=== PATIENT | male | born 1960 | race Caucasian/White ===

== ENCOUNTER 2016-08-02 20:27 | Emergency (ER) | payer SELFPAY ==
[~2016-08-02] VITALS: Ht 177.8 cm; Wt 75.0 kg
[~2016-08-02 20:27] MED LIST: CHLO10CA2 PO; DARU1TAB2 PO; DOLU1TAB PO; INTE200T PO; LACTCAP8 PO; LEVE250 PO; LISI-515 PO; THIA100T PO
[2016-08-02 20:38] VITALS: BP 137/90; PULSE 82; RESP 20; TEMP 99.1; O2SAT 99
[2016-08-02] MEDS ORDERED: SODIUM CHLOR 0.9% 1000 ML INJ 1,000 ML IV SCH (20:45)
--- NOTE | 2016-08-02 21:03 | PD ---
HPI Chief Complaint: Altered Mental Status Time Seen by Provider: 20:59 Travel History International Travel<30 days: No Contact w/Intl Traveler<30days: No Traveled to known affect area: No History of Present Illness HPI 56-year-old male that presents to the ED for evaluation of altered mental status. Patient cannot really provide any significant history. Most of the information provided was given to me by ED nurse who got the report from the ambulance. Patient apparently was found playing on a street by ambulance who brought him here for evaluation. Patient has been altered and doesn't really provide any information. He does appear to be somewhat agitated and had to be restrained. He doesn't really provide me any information. Per report apparently patient has been drinking alcohol today impulsively took some sleeping pills. Patient has been here before for alcohol abuse in the past. He does appear to also have a history of HIV and questionable whether he's had some complaints with it as again we cannot get any information from him at this time. Patient is very altered so history is limited. PFSH Past Medical History Autoimmune Disease: Yes (HIV) Anxiety: Yes Depression: Yes Cancer: No Cardiovascular Problems: Yes (htn on meds) High Cholesterol: Yes Diminished Hearing: No Endocrine: No Gastrointestinal Disorders: Yes Genitourinary: No Headaches: Yes Hypertension: Yes Immune Disorder: Yes (HIV) Implanted Vascular Access Dvce: No Musculoskeletal: No Neurologic: Yes (VIRAL MENINGITIS) Psychiatric: Yes Reproductive: Yes Respiratory: Yes Immunizations Current: Yes Seizures: Yes (10yrs ago seizure) Shingles: Yes ?: Not Past Surgical History Abdominal Surgery: Yes Appendectomy: Yes Cardiac Surgery: No Ear Surgery: No Endocrine Surgery: No Eye Surgery: No Genitourinary Surgery: No Neurologic Surgery: Yes ( lumbar puncture) Oral Surgery: Yes (TOSILLECTOMY) Thoracic Surgery: No Tonsillectomy: Yes Other Surgery: Yes Social History Alcohol Use: Yes ("OFTEN, MOST DAYS" ) Tobacco Use: No Substance Use: No Allergies-Medications (Allergen,Severity, Reaction): Coded Allergies: No Known Allergies (Unverified , 05/14/16) Reported Meds & Prescriptions Reported Meds & Active Scripts Active Chlordiazepoxide (Chlordiazepoxide HCl) 10 Mg Cap 10 Mg PO Q8HR PRN Reported Probiotic (Lactobacillus Acidophilus) 1 Cap Cap 1 Cap PO DAILY Thiamine (Thiamine HCl) 100 Mg Tab 250 Mg PO DAILY Lisinopril 20 Mg Tab 20 Mg PO DAILY Keppra (Levetiracetam) 250 Mg Tab 250 Mg PO BID Intelence (Etravirine) 200 Mg Tab 200 Mg PO BID Tivicay (Dolutegravir Sodium) 50 Mg Tab 50 Mg PO BID Prezcobix (Darunavir-Cobicistat) 800-150 Mg Tab 1 Tab PO DAILY Review of Systems ROS Limitations: Intoxication, Altered Mental Status Except as stated in HPI: all other systems reviewed are Neg Physical Exam Exam Limitations: Intoxication, Altered Mental Status Narrative GENERAL: SKIN: Warm and dry. HEAD: Atraumatic. Normocephalic. EYES: Pupils equal and round dilated 6 mm reactive to light and accommodation. No scleral icterus. No injection or drainage. ENT: No nasal bleeding or discharge. Mucous membranes pink and moist. Tongue is midline. No uvula deviation. NECK: Trachea midline. No JVD. CARDIOVASCULAR: Regular rate and rhythm. No murmurs, S3, S4. RESPIRATORY: No accessory muscle use. Clear to auscultation. Breath sounds equal bilaterally. GASTROINTESTINAL: Abdomen soft, non-tender, nondistended. Hepatic and splenic margins not palpable. MUSCULOSKELETAL: Extremities without clubbing, cyanosis, or edema. No obvious deformities. Full range of motion of the upper and lower extremities bilaterally. 2+ pulses bilaterally. NEUROLOGICAL: Awake and alert and oriented only to person. No obvious cranial nerve deficits. Motor grossly within normal limits. Five out of 5 muscle strength in the arms and legs. Normal speech. PSYCHIATRIC: Intoxicated mood and affect; insight and judgment questionable Data Data Last Documented VS Vital Signs Date Time Temp Pulse Resp B/P Pulse Ox O2 Delivery O2 Flow Rate FiO2 08/02/16 21:34 76 24 139/88 98 Room Air 08/02/16 20:38 99.1 Orders Electrocardiogram (08/02/16 20:45) Ammonia (08/02/16 20:45) Complete Blood Count With Diff (08/02/16 20:45) Comprehensive Metabolic Panel (08/02/16 20:45) Creatine Kinase (Cpk) (08/02/16 20:45) Prothrombin Time / Inr (Pt) (08/02/16 20:45) Act Partial Throm Time (Ptt) (08/02/16 20:45) Troponin I (08/02/16 20:45) Urinalysis - C+S If Indicated (08/02/16 20:45) Blood Culture (08/02/16 20:45) Chest, Single Ap (08/02/16 20:45) Ct Brain W/O Iv Contrast(Rout) (08/02/16 20:45) Blood Glucose (08/02/16 20:45) Ecg Monitoring (08/02/16 20:45) Iv Access Insert/Monitor (08/02/16 20:45) Oximetry (08/02/16 20:45) Sodium Chlor 0.9% 1000 Ml Inj (Ns 1000 M (08/02/16 20:45) Drug Screen, Random Urine (08/02/16 20:45) Alcohol (Ethanol) (08/02/16 20:45) Salicylates (Aspirin) (08/02/16 20:45) Tylenol (Acetaminophen) (08/02/16 20:45) Cath For Specimen (08/02/16 21:11) Thiamine Inj (Thiamine Inj) (08/02/16 21:45) Labs Laboratory Tests Test 08/02/16 08/02/16 20:56 21:30 White Blood Count 7.8 TH/MM3 Red Blood Count 4.06 MIL/MM3 Hemoglobin 13.4 GM/DL Hematocrit 39.1 % Mean Corpuscular Volume 96.5 FL Mean Corpuscular Hemoglobin 33.1 PG Mean Corpuscular Hemoglobin 34.3 % Concent Red Cell Distribution Width 13.6 % Platelet Count 296 TH/MM3 Mean Platelet Volume 7.0 FL Neutrophils (%) (Auto) 60.1 % Lymphocytes (%) (Auto) 32.5 % Monocytes (%) (Auto) 5.4 % Eosinophils (%) (Auto) 1.7 % Basophils (%) (Auto) 0.3 % Neutrophils # (Auto) 4.7 TH/MM3 Lymphocytes # (Auto) 2.5 TH/MM3 Monocytes # (Auto) 0.4 TH/MM3 Eosinophils # (Auto) 0.1 TH/MM3 Basophils # (Auto) 0.0 TH/MM3 CBC Comment DIFF FINAL Differential Comment Prothrombin Time 9.7 SEC Prothromb Time International 0.9 RATIO Ratio Activated Partial 25.2 SEC Thromboplast Time Sodium Level 142 MEQ/L Potassium Level 3.9 MEQ/L Chloride Level 104 MEQ/L Carbon Dioxide Level 28.6 MEQ/L Anion Gap 9 MEQ/L Blood Urea Nitrogen 16 MG/DL Creatinine 1.00 MG/DL Estimat Glomerular Filtration 78 ML/MIN Rate Random Glucose 93 MG/DL Calcium Level 8.4 MG/DL Total Bilirubin 0.2 MG/DL Aspartate Amino Transf 42 U/L (AST/SGOT) Alanine Aminotransferase 41 U/L (ALT/SGPT) Alkaline Phosphatase 118 U/L Total Creatine Kinase 193 U/L Troponin I LESS THAN 0.02 NG/ML Total Protein 7.8 GM/DL Albumin 3.8 GM/DL Acetaminophen Level LESS THAN 2.0 MCG/ML Ethyl Alcohol Level 476 MG/DL Urine Color LIGHT-YELLOW Urine Turbidity CLEAR Urine pH 5.0 Urine Specific [place] 1.006 Urine Protein NEG mg/dL Urine Glucose (UA) NEG mg/dL Urine Ketones NEG mg/dL Urine Occult Blood NEG Urine Nitrite NEG Urine Bilirubin NEG Urine Urobilinogen LESS THAN 2.0 MG/DL Urine Leukocyte Esterase NEG Microscopic Urinalysis Comment CATH-CULT NOT IND Ammonia 10 MCMOL/L Salicylates Level LESS THAN 1.7 MG/DL Urine Opiates Screen NEG Urine Barbiturates Screen NEG Urine Amphetamines Screen NEG Urine Benzodiazepines Screen NEG Urine Cocaine Screen NEG Urine Cannabinoids Screen NEG MDM Medical Decision Making Medical Screen Exam Complete: Yes Emergency Medical Condition: Yes Medical Record Reviewed: Yes Interpretation(s) CBC & BMP Diagram 08/02/16 20:56 LFTs within normal limits. Alcohol in the 450s Urine negative for acute infection. Tox screen negative. EKG shows sinus bradycardia with no sign of acute disease. Last Impressions Head CT [id number] Signed Impressions: Service Date/Time: Tuesday, August 02, 2016 21:01 - CONCLUSION: 1. Atrophic changes left temporal lobe. No acute intracranial abnormalities. Mucosal thickening in the paranasal sinuses. Josh Rodriguez MD Chest X-Ray [id number] Signed Impressions: Service Date/Time: Tuesday, August 02, 2016 20:59 - CONCLUSION: No acute disease. Josh Rodriguez MD Differential Diagnosis Altered mental status versus encephalopathy versus alcohol abuse versus drug abuse versus less likely meningitis Narrative Course 56-year-old male that presents to the ED for evaluation of altered mental status. Patient was properly examined by me and was found to have signs and symptoms consistent of the mental status. My initial examination patient is very important coherent and is appear to be very altered. He does smell of alcohol. Patient does have a history of HIV and previous admission for episodes like this. Labs and imaging were ordered. Patient was given IV fluids. Sepsis workup was done as well secondary to his HIV status. Case was signed out to Dr. Viveros pending lab results and management. Luis Fernando Huffman Aug 02, 2016 21:02
[2016-08-02 21:10] LABS: AUTOMATED NEUTROPHIL # 4.7 TH/MM3 (1.8-7.7); BASOPHIL % 0.3 % (0.0-2.0); EOSINOPHIL # 0.1 TH/MM3 (0-0.4); EOSINOPHIL % 1.7 % (0.0-4.0); HEMATOCRIT 39.1 % (39.0-51.0); HEMO FLAGS DIFF FINAL; LYMPH % 32.5 % (9.0-44.0); LYMPHOCYTE # 2.5 TH/MM3 (1.0-4.8); MEAN CELL VOLUME 96.5 FL (80.0-100.0); MEAN CORPUSCULAR HEMOGLOBIN 33.1 PG (27.0-34.0); MEAN CORPUSCULAR HGB CONC 34.3 % (32.0-36.0); MONO % 5.4 % (0.0-8.0); NEUT % 60.1 % (16.0-70.0); PLATELET COUNT 296 TH/MM3 (150-450); RED BLOOD COUNT 4.06 MIL/MM3 (4.50-5.90); RED CELL DISTRIBUTION WIDTH 13.6 % (11.6-17.2); WHITE BLOOD COUNT 7.8 TH/MM3 (4.0-11.0)
--- NOTE | 2016-08-02 21:27 | RADRPT ---
EXAM DATE/TIME: 08/02/2016 21:01 [facility] COMPARISON: No previous studies available for comparison. INDICATIONS : Altered mental status. RADIATION DOSE: 43.95 CTDIvol (mGy) MEDICAL HISTORY : Non-responsive. SURGICAL HISTORY : Non-responsive. ENCOUNTER: Initial ACUITY: 1 day PAIN SCALE: 0/10 LOCATION: cranial TECHNIQUE: Multiple contiguous axial images were obtained of the head. Using automated exposure control and adj ustment of the mA and/or kV according to patient size, radiation dose was kept as low as reasonably a chievable to obtain optimal diagnostic quality images. FINDINGS: Comparison is February 2016. There is some atrophic change in the left temporal lobe, stable. No mas s, hemorrhage or shift. No hydrocephalus. Cavum septum pellucidum. No recent infarct. CONCLUSION: 1. Atrophic changes left temporal lobe. No acute intracranial abnormalities. Mucosal thickening in th e paranasal sinuses. Josh Rodriguez MD on August 02, 2016 at 21:24 Board Certified Radiologist. This report was verified electronically.
[2016-08-02 21:30] LABS: APTT (PATIENT) 25.2 SEC (24.3-30.1); INTERNATIONAL NORMALIZED RATIO 0.9 RATIO; PROTHROMBIN TIME - PATIENT 9.7 SEC (9.8-11.6)
[2016-08-02 21:31] LABS: ANION GAP 9 MEQ/L (5-15)
[2016-08-02 21:34] VITALS: BP 139/88; PULSE 76; RESP 24; O2SAT 98
[2016-08-02 21:36] LABS: ALKALINE PHOSPHATASE 118 U/L (45-117); ALT (GPT) 41 U/L (12-78); AST (GOT) 42 U/L (15-37); BICARBONATE 28.6 MEQ/L (21.0-32.0); BLOOD UREA NITROGEN 16 MG/DL (7-18); CHLORIDE 104 MEQ/L (98-107); CREATINE KINASE 193 U/L (39-308); GLOMERULAR FILTRATION RATE 78 ML/MIN (>89); POTASSIUM 3.9 MEQ/L (3.5-5.1); SODIUM (NA) 142 MEQ/L (136-145); TOTAL BILIRUBIN ADULT 0.2 MG/DL (0.2-1.0)
[2016-08-02 21:39] LABS: ACETAMINOPHEN LESS THAN 2.0 MCG/ML (10.0-30.0)
[2016-08-02] MEDS ORDERED: THIAMINE INJ 100 MG in SODIUM CHLORIDE 0.9% INJ 100 ML IV ONE (21:45)
[2016-08-02 21:57] LABS: BLOOD, URINE NEG (NEG); GLUCOSE,URINE NEG (NEG); KETONE, URINE NEG (NEG); NITRITE,URINE NEG (NEG); URINE COLOR LIGHT-YELLOW (YELLW/STRAW)
--- NOTE | 2016-08-02 21:59 | RADRPT ---
EXAM DATE/TIME: 08/02/2016 20:59 [facility] COMPARISON: CHEST SINGLE AP, March 18, 2016, 19:37. INDICATIONS : Patient found unconscious. MEDICAL HISTORY : Unobtainable. SURGICAL HISTORY : Unobtainable. ENCOUNTER: Initial ACUITY: 1 day PAIN SCORE: Non-responsive. LOCATION: Bilateral chest FINDINGS: A single view of the chest demonstrates the lungs to be symmetrically aerated without evidence of mas s, infiltrate or effusion. The cardiomediastinal contours are unremarkable. Osseous structures are intact. CONCLUSION: No acute disease. Josh Rodriguez MD on August 02, 2016 at 21:57 Board Certified Radiologist. This report was verified electronically.
[2016-08-02 22:03] LABS: COMMENT (UR) CATH-CULT NOT IND; CULTURE IF INDICATED CATH CULTURE NOT IND
[2016-08-02 22:05] LABS: AMPHETAMINE, URINE NEG (NEG); BARBITURATES, URINE NEG (NEG); COCAINE, URINE NEG (NEG)
--- NOTE | 2016-08-03 00:54 | PD ---
Physical Exam Narrative Patient originally seen in triage by [facility], where workup was initiated. Patient is more awake and alert currently. He says he drank a lot tonight. He says he's been feeling fine prior to drinking too much tonight. He has no complaints at this time. He says he was out drinking and he was trying to get home when he must have passed out. He denies any pains or any trauma to his head. He denies fever or chills. He denies cough or cold. Data Data Last Documented VS Vital Signs Date Time Temp Pulse Resp B/P Pulse Ox O2 Delivery O2 Flow Rate FiO2 08/02/16 21:34 76 24 139/88 98 Room Air 08/02/16 20:38 99.1 Orders Electrocardiogram (08/02/16 20:45) Ammonia (08/02/16 20:45) Complete Blood Count With Diff (08/02/16 20:45) Comprehensive Metabolic Panel (08/02/16 20:45) Creatine Kinase (Cpk) (08/02/16 20:45) Prothrombin Time / Inr (Pt) (08/02/16 20:45) Act Partial Throm Time (Ptt) (08/02/16 20:45) Troponin I (08/02/16 20:45) Urinalysis - C+S If Indicated (08/02/16 20:45) Blood Culture (08/02/16 20:45) Chest, Single Ap (08/02/16 20:45) Ct Brain W/O Iv Contrast(Rout) (08/02/16 20:45) Blood Glucose (08/02/16 20:45) Ecg Monitoring (08/02/16 20:45) Iv Access Insert/Monitor (08/02/16 20:45) Oximetry (08/02/16 20:45) Sodium Chlor 0.9% 1000 Ml Inj (Ns 1000 M (08/02/16 20:45) Drug Screen, Random Urine (08/02/16 20:45) Alcohol (Ethanol) (08/02/16 20:45) Salicylates (Aspirin) (08/02/16 20:45) Tylenol (Acetaminophen) (08/02/16 20:45) Cath For Specimen (08/02/16 21:11) Thiamine Inj (Thiamine Inj) (08/02/16 21:45) Labs Laboratory Tests Test 08/02/16 08/02/16 20:56 21:30 White Blood Count 7.8 TH/MM3 Red Blood Count 4.06 MIL/MM3 Hemoglobin 13.4 GM/DL Hematocrit 39.1 % Mean Corpuscular Volume 96.5 FL Mean Corpuscular Hemoglobin 33.1 PG Mean Corpuscular Hemoglobin 34.3 % Concent Red Cell Distribution Width 13.6 % Platelet Count 296 TH/MM3 Mean Platelet Volume 7.0 FL Neutrophils (%) (Auto) 60.1 % Lymphocytes (%) (Auto) 32.5 % Monocytes (%) (Auto) 5.4 % Eosinophils (%) (Auto) 1.7 % Basophils (%) (Auto) 0.3 % Neutrophils # (Auto) 4.7 TH/MM3 Lymphocytes # (Auto) 2.5 TH/MM3 Monocytes # (Auto) 0.4 TH/MM3 Eosinophils # (Auto) 0.1 TH/MM3 Basophils # (Auto) 0.0 TH/MM3 CBC Comment DIFF FINAL Differential Comment Prothrombin Time 9.7 SEC Prothromb Time International 0.9 RATIO Ratio Activated Partial 25.2 SEC Thromboplast Time Sodium Level 142 MEQ/L Potassium Level 3.9 MEQ/L Chloride Level 104 MEQ/L Carbon Dioxide Level 28.6 MEQ/L Anion Gap 9 MEQ/L Blood Urea Nitrogen 16 MG/DL Creatinine 1.00 MG/DL Estimat Glomerular Filtration 78 ML/MIN Rate Random Glucose 93 MG/DL Calcium Level 8.4 MG/DL Total Bilirubin 0.2 MG/DL Aspartate Amino Transf 42 U/L (AST/SGOT) Alanine Aminotransferase 41 U/L (ALT/SGPT) Alkaline Phosphatase 118 U/L Total Creatine Kinase 193 U/L Troponin I LESS THAN 0.02 NG/ML Total Protein 7.8 GM/DL Albumin 3.8 GM/DL Acetaminophen Level LESS THAN 2.0 MCG/ML Ethyl Alcohol Level 476 MG/DL Urine Color LIGHT-YELLOW Urine Turbidity CLEAR Urine pH 5.0 Urine Specific [place] 1.006 Urine Protein NEG mg/dL Urine Glucose (UA) NEG mg/dL Urine Ketones NEG mg/dL Urine Occult Blood NEG Urine Nitrite NEG Urine Bilirubin NEG Urine Urobilinogen LESS THAN 2.0 MG/DL Urine Leukocyte Esterase NEG Microscopic Urinalysis Comment CATH-CULT NOT IND Ammonia 10 MCMOL/L Salicylates Level LESS THAN 1.7 MG/DL Urine Opiates Screen NEG Urine Barbiturates Screen NEG Urine Amphetamines Screen NEG Urine Benzodiazepines Screen NEG Urine Cocaine Screen NEG Urine Cannabinoids Screen NEG MDM Supervised Visit with ERMELINDA: Yes Narrative Course Patient is a 56-year-old male brought in because he was found sleeping outside. Labs were sent from triage, patient found to have an alcohol level of 476. Patient observed in the ED. Exam shows no signs of trauma. Heart is regular rate and rhythm. He is moving all his extremities. As patient began to become more sober, he has no complaints, says he has been feeling well. She will be observed in the emergency Department until sober and discharged home to follow-up with his doctors. Diagnosis Primary Impression: Alcohol intoxication Qualified Code: F10.120 - Alcohol intoxication, uncomplicated Patient Instructions: Alcohol Intoxication (ED), General Instructions Additional Instruction: Follow up with your doctors. Refrain from alcohol use. Return to the ED as needed for any worsening symptoms. Condition: Stable Corin Viveros MD Aug 03, 2016 00:54
[2016-08-03 01:25] VITALS: BP 118/80; PULSE 63; RESP 18; O2SAT 94
[2016-08-03 05:48] VITALS: BP 117/74
--- NOTE | 2016-08-04 14:39 | EKG ---
Date Performed: 08/02/2016 Time Performed: 21:41:37 PTAGE: 56 years EKG: SINUS BRADYCARDIA Compared to previous tracing, sinus bradycardia has replaced atrial flutt er BORDERLINE ECG PREVIOUS TRACING : 05/15/2016 04.02 DOCTOR: Shan Chen Interpretating Date/Time 08/04/2016 14:38:31
[2016-08-13] MEDS ORDERED: LISI-515 PO ×2 (14:00→14:03)
== END 2016-08-03 05:54 | disposition home or self-care (01) ==
LOC: NEDAMB 20:27 → NEPA 08-03 05:54
DX: F10.220 Alcohol dependence with intoxication, uncomplicated (principal); F41.8 Other specified anxiety disorders; I10 Essential (primary) hypertension; B20 Human immunodeficiency virus [HIV] disease; E78.00 Pure hypercholesterolemia, unspecified; Y90.8 Blood alcohol level of 240 mg/100 ml or more
CPT/HCPCS: 70450; 71010; 80053; 80307; 80320; 81001; 82140; 82550; 84484; 85025; 85610; 85730; 87040; 93005; 96365; 96366; 99285; J3411; J7030; 80329; G0480